=== PATIENT | female | born 1990 | race Caucasian/White ===

== ENCOUNTER 2021-06-02 11:21 | Emergency (ER) | payer SELFPAY ==
[~2021-06-02] VITALS: Ht 162.6 cm; Wt 59.0 kg
[2021-06-02 13:16] LABS: URINE COLOR ORANGE
[2021-06-02 13:22] LABS: URINE BACTERIA MODERATE hpf; URINE SQUAMOUS EPITHELIAL CELL MODERATE EPI/hpf (0-FEW)
[2021-06-02] MEDS ORDERED: PYRIDIUM200 MG PO (13:31)
[2021-06-02] MEDS ORDERED: KEFLEX500 MG PO (13:31)
[2021-06-02 13:52] VITALS: BP 122/77
[2021-06-02] MEDS ORDERED: ULTRAM50 M1 PO (14:02)
== END 2021-06-02 13:59 | disposition home or self-care (01) | DRG 178 ==
LOC: ED 11:21
PROVIDERS: Emergency Medicine
DX: U07.1 COVID-19 (principal); N39.0 Urinary tract infection, site not specified; F41.9 Anxiety disorder, unspecified

== ENCOUNTER 2021-10-11 18:36 | Emergency (ER) | payer SELFPAY ==
[~2021-10-11] VITALS: Ht 165.1 cm; Wt 44.0 kg
[~2021-10-11 18:36] MED LIST: KEFLEX500 MG PO; PYRIDIUM200 MG PO; ULTRAM50 M1 PO
[2021-10-11 19:00] VITALS: BP 107/62
[2021-10-11 19:57] LABS: URINE BILIRUBIN - DIPSTICK NEGATIVE (NEGATIVE); URINE BLOOD DIPSTICK TRACE-INTACT (NEGATIVE); URINE CLARITY CLOUDY; URINE COLOR YELLOW; URINE GLUCOSE - DIPSTICK NEGATIVE (NEGATIVE); URINE KETONE 15 mg/dL (NEGATIVE); URINE LEUK ESTERASE NEGATIVE (Negative); URINE NITRITE - DIPSTICK POSITIVE (Negative); URINE PROTEIN - DIPSTICK TRACE mg/dL (NEG-TRACE); URINE SPECIFIC GRAVITY 1.025; URINE UROBILINOGEN - DIPSTICK 0.2 E.U./dL (0.2)
[2021-10-11 20:04] LABS: URINE BACTERIA MANY hpf; URINE CALCIUM OXALATE CRYSTALS MODERATE lpf; URINE SQUAMOUS EPITHELIAL CELL MANY EPI/hpf (0-FEW)
[2021-10-11] MEDS ORDERED: BACTRIM DS1 TAB PO (21:18)
[2021-10-11] MEDS ORDERED: LORTAB 1010 MG PO (21:18)
[2021-10-11] MEDS ORDERED: KEFLEX500 MG PO (21:18)
== END 2021-10-11 21:55 | disposition home or self-care (01) | DRG 758 ==
LOC: ED 18:36
PROVIDERS: Emergency Medicine
PROC: 0U9LXZZ Drainage of Vestibular Gland, External Approach (ICD-10-PCS; principal; 2021-10-11)
DX: N75.1 Abscess of Bartholin's gland (principal); N39.0 Urinary tract infection, site not specified; F41.9 Anxiety disorder, unspecified; Z86.16 Personal history of COVID-19

== ENCOUNTER 2021-10-12 18:00 | Emergency (ER) | payer SELFPAY ==
[~2021-10-12] VITALS: Ht 165.1 cm; Wt 50.0 kg
[~2021-10-12 18:00] MED LIST changes: +BACTRIM DS1 TAB PO; +LORTAB 1010 MG PO
[2021-10-12 20:43] VITALS: BP 114/62
== END 2021-10-12 21:02 | disposition home or self-care (01) | DRG 951 ==
LOC: ED 18:00
DX: Z48.01 Encounter for change or removal of surgical wound dressing (principal); F41.9 Anxiety disorder, unspecified; Z86.16 Personal history of COVID-19

== ENCOUNTER 2022-04-11 09:38 | Emergency (ER) | payer SELFPAY ==
[2022-04-11] VITALS (12 sets, daily range): BP systolic 91–149; BP diastolic 52–125
[~2022-04-11] VITALS: Ht 165.1 cm; Wt 50.0 kg
[2022-04-11 11:07] LABS: HEMATOCRIT 36.8 % (37.0-47.0); HEMOGLOBIN 12.4 g/dl (12.0-16.0); IMMATURE GRANULOCYTES 0.3 % (0.0-5.0); MEAN CELL VOLUME 97.6 fL CALC (80.0-100.0); MEAN CORPUSCULAR HGB 32.9 pG CALC (26.0-32.0); MEAN CORPUSCULAR HGB CONC 33.7 g/dL CAL (32.0-36.0); NEUT# 8.81 thou/uL (2.00-7.15); RED BLOOD COUNT 3.77 mill/uL (4.20-5.60); RED CELL DISTRI WIDTH 11.7 % (11.5-15.5)
[2022-04-11 11:11] LABS: ALBUMIN 3.9 g/dL (3.2-5.0); ALKALINE PHOSPHATASE 53 u/l (38-126); ANION GAP 9 (6-22 (CALC)); BUN 11 mg/dL (7-17); BUN/CREATININE RATIO 17 (12-20 (CALC)); CARBON DIOXIDE 28 mmol/l (22-30); CHLORIDE 104 mmol/l (95-108); CREATININE 0.6 mg/dL (0.5-1.0); GFR FOR AFR.AMER. > 60 ML/MIN (>=60 (CALC)); GFR OTHER RACES > 60 ML/MIN (>=60 (CALC)); POTASSIUM 4.2 mmol/l (3.5-5.1); SGOT/AST 39 u/l (14-36); SODIUM 137 mmol/l (137-146); TOTAL PROTEIN 6.7 g/dL (6.3-8.2)
[2022-04-11] MEDS ORDERED: CEPHALEXIN500 MG PO (11:37)
[2022-04-11] MEDS ORDERED: BACTRIM DS1 TAB PO (11:37)
[2022-04-11] MEDS ORDERED: TRAMADOL HYDROC50 M1 PO (11:43)
== END 2022-04-11 11:53 | disposition home or self-care (01) | DRG 761 ==
LOC: ED 09:38
PROVIDERS: Family Medicine
PROC: 0U9L0ZZ Drainage of Vestibular Gland, Open Approach (ICD-10-PCS; principal; 2022-04-11)
DX: N75.0 Cyst of Bartholin's gland (principal); F41.9 Anxiety disorder, unspecified; B95.7 Other staphylococcus as the cause of diseases classified elsewhere; Z86.16 Personal history of COVID-19

== ENCOUNTER 2022-05-22 11:00 | Emergency (ER) | payer SELFPAY ==
[~2022-05-22] VITALS: Ht 165.1 cm; Wt 50.0 kg
[~2022-05-22 11:00] MED LIST changes: +CEPHALEXIN500 MG PO; +TRAMADOL HYDROC50 M1 PO
[2022-05-22 11:30] VITALS: BP 102/45
[2022-05-22 14:50] VITALS: BP 102/45
[2022-05-22] MEDS ORDERED: BACTRIM DS1 TAB PO (14:54)
[2022-05-22] MEDS ORDERED: OMNI-PAC300 MG PO (14:54)
[2022-05-22] MEDS ORDERED: DIFLUCAN100 M1 PO (14:54)
[2022-05-25] MEDS ORDERED: OMNI-PAC300 MG PO (16:13)
[2022-05-25] MEDS ORDERED: DIFLUCAN100 M1 PO (16:13)
[2022-05-25] MEDS ORDERED: BACTRIM DS1 TAB PO (16:13)
[2022-05-25] MEDS ORDERED: TRAMADOL HYDROC50 M1 PO (16:14)
== END 2022-05-22 15:01 | disposition home or self-care (01) | DRG 759 ==
LOC: ED 11:00
PROC: 0U9LXZZ Drainage of Vestibular Gland, External Approach (ICD-10-PCS; principal; 2022-05-22)
DX: N75.1 Abscess of Bartholin's gland (principal); Z86.16 Personal history of COVID-19